=== PATIENT | male | born 1945 | race Caucasian/White ===

== ENCOUNTER → 2019-09-05 09:58 | Outpatient (CLI) | payer MEDICARE ==
[2015-03-13 06:30] VITALS: BMI 28.3
[~2019-09-05 09:58] MED LIST: ARICEPT10 MG PO; CENTRUM COMPLE1 EACH PO; DIOVAN HCT 80-11 TAB PO; MELATONIN 3 MG1 TAB PO; SAW PALMETTO450 MG PO; SLEEP AID25 M1 PO
== END | disposition home or self-care (01) ==
LOC: D.HCCECHO 09:58
PROVIDERS: ATTEND Internal Medicine Cardiovascular Disease
DX: I10 Essential (primary) hypertension (principal)

== ENCOUNTER 2019-09-26 11:09 | Outpatient (CLI) | payer MEDICARE ==
[~2019-09-26] VITALS: Ht 167.6 cm; Wt 80.2 kg
--- NOTE | ~2019-09-26 | HEMODYNAMI ---
PATIENT:LEXI OCONNOR MEDICAL RECORD: [id number] : 49 LOCATION:DSukiCAT ADMISSION DATE: 09/26/19 Generatedon:09/26/201913:57 Patient name: LEXI OCONNOR Patient #: [id number] SSN: [id number] : 1945 Date of study: 09/26/2019 Page: Of Hemodynamic Procedure Report Patient Data Patient Demographics Procedure consent was obtained First Name: LEXI Gender: Male Last Name: ELVIN : 1945 [facility] Initial: E Age: 74 year(s) Patient #: [id number] Race: Unknown SSN: [id number] Additional ID: [id number] Contact details Address: [place] [address] State: [place] City: [place] Zip code: [address] Past Medical History Allergies: No known allergies Admission Admission Data Admission Date: 09/26/2019 Admission Time: 11:09 Arrival Date: 09/26/2019 Arrival Time: 0:00 Admit Source: Other Insurance Payor: Medicare [facility] #: [id number] Height (in.): 26.38 BSA: 0.96 (m2) Height (cm.): 67 BMI: 171.78 (kg/m2) Weight (lbs.): 170 Weight (kg.): 77.11 Lab Results Lab Result Date: 09/26/2019 Lab Result Time: 0:00 Biochemistry Name Units Result Min Max BUN mg/dl 13 --(--*-)-- 7 18 Creatinine mg/dl 1.1 --(--*-)-- 0.6 1.3 eGFR ml/min 70.08954 *-(----)-- 90 120 NONAFRICAN CBC Name Units Result Min Max Hematocrit % 45.5 --(-*--)-- 42 54 Hemoglobin g/dl 15.6 --(--*-)-- 13.5 17.5 Procedure Procedure Types Cath Procedure Diagnostic Procedure PPM/ICD PPM Dual Implant Sedation Charges Moderate Sedation up to 30 minutes Procedure Description Procedure Date Procedure Date: 09/26/2019 Procedure Start Time: 13:26 Procedure End Time: 13:53 Procedure Staff Name Function Arturo Castillo MD Performing Physician Catarino Humphrey MD Assisting physician Vane Renner RT Monitor Maria Teresa Yi RN Nurse Chuyita John RT Scrub Indication Bradycardia Procedure Data Cath Procedure Fluoroscopy Diagnostic fluoroscopy Total fluoroscopy Time: 2.8 time: 2.8 min min Diagnostic fluoroscopy Total fluoroscopy dose: dose: 95.8 mGy 95.8 mGy Estimated blood loss: 10 ml Procedure Complications No complications Procedure Medications Medication Administration Route Dosage 0.9% NaCl I.V. 100 ml/hr Oxygen etCO2 Nasal cannula 2 l/min Lidocaine 1% added to field 20 Ancef (1Gm/50ml NS) I.V.P.B 1 g Ancef Irrigation Topical 1 g (1gm/500ml NS) Versed I.V. 2 mg Fentanyl I.V. 50 mcg Versed I.V. 2 mg Fentanyl I.V. 50 mcg Fentanyl I.V. 50 mcg Hemodynamics Rest BSA: 0.96 (m2) O2 Consumption: Estimated: 104.91 (ml/min) O2 Consumption indexed : Estimated:109.28 (ml/min/m) Heart Rate: 54 (bpm) Snapshots Pre Cath Intra NCS Post Cath Vital Signs Time Heart Resp SPO2 etCO2 NIBP (mmHg) Rhythm Pain Sedation Rate (ipm) (%) (mmHg) Status Level (bpm) 12:53:14 50 13 100 24 127/81(106) SB 0 (11) 10(A) , No pain 12:57:26 56 14 97 0 118/73(91) SB 0 (11) 10(A) , No pain 13:01:35 56 13 100 24 116/69(97) SB 0 (11) 10(A) , No pain 13:05:49 56 16 100 27 114/72(94) SB 0 (11) 10(A) , No pain 13:09:57 54 11 100 30.7 119/71(86) SB 0 (11) 10(A) , No pain 13:14:07 56 11 100 23.2 114/71(86) SB 0 (11) 10(A) , No pain 13:18:05 59 10 99 24 108/72(90) SB 0 (11) 10(A) , No pain 13:22:13 58 13 99 33 116/65(84) SB 0 (11) 10(A) , No pain 13:26:22 58 14 99 40.5 113/67(82) SB 0 (11) 10(A) , No pain 13:30:30 65 14 99 36 119/71(98) NSR 0 (11) 10(A) , No pain 13:34:40 60 13 99 40.5 110/67(88) NSR 0 (11) 10(A) , No pain 13:39:35 55 15 100 31.5 114/65(91) SB 0 (11) 10(A) , No pain 13:43:43 89 14 100 32.2 116/70(107) Paced 0 (11) 10(A) , No pain 13:48:36 60 13 100 31.4 116/70(96) Paced 0 (11) 10(A) , No pain 13:52:42 59 9 100 34.4 119/74(91) Paced 0 (11) 10(A) , No pain Medications Time Medication Route Dose Verified Delivered Reason Notes Effecti veness by by 12:52:25 0.9% NaCl I.V. 100 Arturo Maria Teresa used for ml/hr Anna Kd procedure RN 12:52:31 Oxygen etCO2 2 Arturo Maria Teresa used for Nasal l/min AnnaEliot Yi procedure cannula RN 12:52:47 Lidocaine added 20ml Catarino Toribio for local 1% to vial Mayuri Humphrey MD anesthetic field x 2 12:52:59 Ancef I.V.P.B 1 g Sabianist Maria Teresa used for (1Gm/50ml Mayuri Yi procedure NS) RN 12:53:10 Ancef Topical 1 g Sabianist Sabianist used for Irrigation Mayuri Humphrey MD procedure (1gm/500ml NS) 13:23:15 Fentanyl I.V. 50 Arturo Maria Teresa for mcg St [place] Yi sedation RN 13:23:55 Versed I.V. 2 mg Arturo Maria Teresa for St [place] Yi sedation RN 13:29:21 Versed I.V. 2 mg Arturo Maria Teresa for AnnaElito Yi sedation RN 13:29:24 Fentanyl I.V. 50 Arturo Morel for [facility] [place] Yi sedation RN 13:34:33 Fentanyl I.V. 50 Arturo Morel for [facility] St Eliot Yi sedation sanitary napkin machine tender Log Time Note 12:20:18 Arrival Date: 09/26/2019 12:00:00 AM 12:20:39 Admit Source: Other 12:20:43 Insurance Payor : Medicare 12:20:53 Patient Height : 26.38 inches 12:21:04 Patient Weight : 170 lbs 12:22:23 Diagnostic Cath Status : Elective 12:23:15 Indication : Bradycardia 12:23:29 Procedure Status Elective Heart Cath (OP). 12:23:31 Time tracking: Regular hours (M-F 7:00 - 5:00) 12:23:36 Plan of Care:Hemodynamics will remain stable., Cardiac rhythm will remain stable., Comfort level will be maintained., Respiratory function will remain adequate., Patient/ family verbilizes understanding of procedure., Procedure tolerated without complication., Recovers from procedure without complications.. 12:36:25 Vane GUPTA(R) sent for patient. Start room use. 12:43:08 Patient received from Pre/Post Procedure Room to CCL 3 Alert and oriented. Tansferred to table in Supine position. 12:43:11 Signed procedure consent form obtained from patient. 12:43:11 Warm blankets applied, and abdoul hugger turned on for patient comfort. 12:43:12 Correct patient and procedure confirmed by team. 12:43:31 H&P Date Dictated: 09/12/2019 Within 30 days and on chart., H&P Addendum completed by physician on day of procedure. (MUST COMPLETE FOR ALL OUTPATIENTS). 12:43:40 Patient allergic to No known allergies 12:45:01 Lab Result : BUN 13 mg/dl 12:45:01 Lab Result : Creatinine 1.1 mg/dl 12:45:01 Lab Result : eGFR NONAFRICAN 70.67373 ml/min 12:45:01 Lab Result : Hemoglobin 15.6 g/dl 12:45:01 Lab Result : Hematocrit 45.5 % 12:45:54 Pre-procedure instructions explained to patient. 12:45:54 Pre-op teaching completed and patient verbalized understanding. 12:46:03 Family in patients room. 12:46:05 Patient NPO since Midnight. 12:46:06 Is patient on blood thinner?No 12:46:29 Patient diabetic? No. 12:46:36 Previous problem with sedation/anesthesia? No ? 12:46:37 Snore? Yes 12:46:40 Sleep apnea? Yes 12:46:42 Deviated septum? No 12:46:44 Opens mouth fully? No 12:46:44 Sticks out tongue? Yes 12:47:01 Airway obstruction? No ? 12:47:02 Dentures? No ? 12:47:12 Patient pain scale 0/10 ?. 12:47:22 IV patent on arrival in left hand with 0.9% NaCl at [facility]. 12:47:46 Lab results completed and on chart. 12:47:51 Left chest area was prepped with chlora-prep and draped in sterile fashion 12:47:52 Alarms reviewed by R. N. 12:47:53 Sharps counted by scrub and verified by R.N. 12:52:13 Vital chart was started 12:52:25 0.9% NaCl 100 ml/hr I.V. was administered by Maria Teresa Yi RN; used for procedure; Verbal order read back and verified. 12:52:31 Oxygen 2 l/min etCO2 Nasal cannula was administered by Maria Teresa Yi RN; used for procedure; Verbal order read back and verified. 12:52:47 Lidocaine 1% 20ml vial x 2 added to field was administered by Catarino Humphrey MD; for local anesthetic; Verbal order read back and verified. 12:52:59 Ancef (1Gm/50ml NS) 1 g I.V.P.B was administered by Maria Teresa Yi RN; used for procedure; Verbal order read back and verified. 12:53:10 Ancef Irrigation (1gm/500ml NS) 1 g Topical was administered by Catarino Humphrey MD; used for procedure; Verbal order read back and verified. 12:59:[address] Generator [id number] opened to sterile field. 12:59:48 Medtronic 4074-52 PPM Lead opened to sterile field. 12:59:49 Medtronic 4574-45 PPM Lead opened to sterile field. 13:05:40 Baseline sample Acquired. 13:05:49 Full Disclosure recording started 13:19:41 Use device set MAYURI PPM 13:19:50 2-0 Ticron Multipack ([id number]) opened to sterile field. 13:19:51 3-0 Vicryl Single Pack [id number] opened to sterile field. 13:19:51 5-0 Monocryl PS2 [id number] opened to sterile field. 13:19:55 Cautery Tip Station Repairer opened to sterile field. 13:20:02 Mepilex Dressing ([id number]) opened to sterile field. 13:22:13 Physician arrived 13::14 --------ALL STOP TIME OUT------ 13::15 Final Timeout: patient, procedure, and site verified with staff and physician. All members of the team are in agreement. 13:22:35 Left Arm site verified by team. 13::39 Fire Safety Assessment: A--An alcohol-based skin anteseptic being used preoperatively., C--Open oxygen or nitrous oxide is being used., D--An ESU, laser, or fiber-optic light is being used. 13:22:45 Physical assessment completed. ASA score P 3 - A patient with severe systemic disease as per Arturo Castillo MD. 13:23:07 2) 60-89 Mildly reduced kidney function, and other findings (as for stage 1) point to kidney disease. 13:23:13 Sedation plan: IV Moderate Sedation Medication:Versed, Fentanyl 13:23:15 Fentanyl 50 mcg I.V. was administered by Maria Teresa Yi RN; for sedation; Verbal order read back and verified. 13:23:55 Versed 2 mg I.V. was administered by Maria Teresa Yi RN; for sedation; Verbal order read back and verified. 13:24:04 Procedure started. 13:25:02 [employer] videotape sales representative DAVID Casper present for procedure. 13:25:32 Pre sharps counted by scrub and verified by RN: Sutures: 6; Sponges: 5; Stick needles: 2; Skin needles: 1; Blade: 1; Cautery: 1 13:25:53 Grounding pad site Left thigh. 13:25:55 Grounding pad site free from injury. 13:26:03 Lidocaine 1% w/epi was administered to left subclavicular area by Catarino Humphrey MD . 13:29:21 Versed 2 mg I.V. was administered by Maria Teresa Kd RN; for sedation; Verbal order read back and verified. 13:29:24 Fentanyl 50 mcg I.V. was administered by Maria Teresa Yi RN; for sedation; Verbal order read back and verified. 13:30:17 Incision made to left subclavicular area. 13:31:32 Generator pocket made/opened. 13:31:42 Left subclavian vein accessed with 7Fr Peel Away Sheath. 13:32:24 Ventricular lead inserted and advanced. 13:32:35 Atrial lead inserted and advanced. 13:32:58 Peel-a-way sheath was split and removed. 13:34:27 Immobilizer Large opened to sterile field. 13:34:33 Fentanyl 50 mcg I.V. was administered by Maria Teresa Yi RN; for sedation; Verbal order read back and verified. 13:34:47 Ventricular lead tested. 13:34:50 Atrial lead tested. 13:35:04 PPM Dual was inserted subcutaneously to left chest. 13:35:07 Device pocket was irrigated with Ancef. 13:35:14 Ventricular lead attachment was completed with 2-0 silk. 13:35:18 Atrial lead attachment was completed with 2-0 silk. 13:35:21 Generator was sutured in place with 2-0 silk. 13:39:41 Subcutaneous closure was completed with 3-0 vicryl. 13:43:28 Skin closure was completed with 5-0 monocryl. 13:45:23 Parameters-- Generator: Mode: 60. Lower Rate: AAIR=DDDRbpm. Upper Rate: 120bpm. 13:46:21 Parameters--Ventricular P/R Wave: 11.3mV. Current: .1mA; Threshold: .2V; Impedence: 1096OHMS. 13:46:56 Parameters--Atrial P/R Wave: 4.1mV. Current: .4mA; Threshold: .3V; Impedence: 566OHMS. 13:47:04 Lt Chest incision was dressed with Mepilex dressing. 13:50:10 Procedure ended.(Physican Out) 13:50:35 Fluoroscopy time 02.80 minutes. 13:51:20 Flurop Dose total: 95.8 13:51:20 Fluoroscopy dose: 95.8 mGy 13:51:29 Dose Area Product 1389 mGy/cm. 13:51:43 Sharps counted by scrub and verified by R.N. 13:52:00 Post left subclavian vein:stable 13:52:02 Post Procedure Pulses reassessed and unchanged 13:52:07 Post-procedure physical assessment completed. ASA score P 2 - A patient with mild systemic disease as per Arturo Castillo MD. 13:52:10 Post procedure rhythm: paced 13:52:14 Estimated blood loss: 10 ml 13:52:16 Post procedure instruction explained to patient.Patient verbalizes understanding. 13:52:44 Procedure type changed to Cath procedure, Diagnostic procedure, PPM/ICD, PPM Dual Implant, Sedation Charges, Moderate Sedation up to 30 minutes 13:52:46 Procedure and supply charges have been captured, reviewed, submitted and are correct. 13:53:08 Procedure Complication : No complications 13:53:11 Vital chart was stopped 13:53:23 Operative report dictated upon procedure completion. 13:53:24 See physician's report for complete and final results. 13:53:27 Report given to Pre/Post Procedure Room. 13:53:30 Patient transfered to Pre/Post Procedure Room with Stretcher. 13:53:32 Procedure ended. 13:53:32 Full Disclosure recording stopped 13:53:35 End room use (Document Last) Device Usage Item Name Manufacture Quantity Catalog Hospital Part Current Minima l Lot# / Number Charge Number Stock Stock Serial# Code Medtronic Medtronic 1 [id number] 5 PEDRO XT [id number] Generator EXP. W1DR01 01/02/2021 Medtronic Medtronic 1 4074-52 952910 384410 611647 5 4074-52 PPM [id number] Lead EXP .12/01/2017 Medtronic Medtronic 1 4574-45 [id number] 324902 473155 5 4574-45 PPM [id number] Lead EX P.05-03-2019 2-0 Ticron Ethicon 3 [id number] 58179 528454 5 Multipack ([id number]) 3-0 Vicryl Ethicon 1 [id number] 937282 507165 570691 5 Single Pack [id number] 5-0 Monocryl Ethicon 1 [id number] 743969 823154 323955 5 PS2 Y495G Cautery Tip Microtek 1 [id number] [id number] 862497 448697 5 Station [employer] Mepilex Cardinal 1 [id number] 139483 114583 776804 5 Dressing Health (572123) Immobilizer Cardinal 1 [id number] 573122 581592 957529 5 Large Health Signature Audit Oklee Stage Time Signature Unsigned Intra-Procedure 09/26/2019 Vane Renner 1:55:16 PM RT(R) Intra-Procedure 09/26/2019 Maria Teresa Yi 1:56:50 PM RN Intra-Procedure 09/26/2019 Arturo Little 1:57:49 PM [place] [address] [id number] [place] [address]
[2019-09-26] MEDS ORDERED: COZAAR25 MG PO (11:55)
[2019-09-26] MEDS ORDERED: HYDROCHLOROTH12.5 M1 PO (11:55)
[2019-09-26] MEDS ORDERED: MULTI-DAY VITAM1 TAB PO (11:55)
[2019-09-26] MEDS ORDERED: CRESTOR10 MG PO (11:56)
[2019-09-26] MEDS ORDERED: SILODOSIN 4 MG PO (11:57)
[2019-09-26] MEDS ORDERED: VIAGRA100 MG PO (11:58)
[2019-09-26] MEDS ORDERED: MOBIC7.5 MG PO (11:58)
[2019-09-26 12:15] VITALS: BP 133/75; Ht 167.6 cm; Wt 80.2 kg
[2019-09-26 12:28] LABS: CALCIUM 9.3 mg/dL (8.5-10.1); CARBON DIOXIDE 25.7 mmol/L (21.0-32.0); CREATININE - SERUM 1.1 mg/dL (0.6-1.3); POTASSIUM - SERUM 3.7 mmol/L (3.5-5.1)
[2019-09-26 12:32] LABS: HEMATOCRIT 45.5 % (42.0-54.0); HEMOGLOBIN 15.6 g/dL (13.5-17.5); MCH 32.4 pg (26.0-34.0); MCHC 34.3 g/dL (31.0-37.0); MCV 94.6 fL (80.0-100.0); MEAN PLATELET VOLUME 10.3 fL (7.4-10.4); RBC 4.81 10x6/uL (4.20-6.10); RDW 13.1 % (11.5-14.5); WBC 6.6 10x3/uL (4.8-10.8)
[2019-09-26 12:55] LABS: APTT 29.5 SECONDS (22.8-39.4); INR 1.03 (0.85-1.17); PROTIME 13.4 SECONDS (11.6-15.0)
--- NOTE | 2019-09-26 14:15 | NUR ---
PT REC'D TO ROOM 3 VIA STRETCHER FROM GROUT WORKER. MONITORS ESTAB. AT BS. SEE SENIOR ARCHITECT/DESIGN MANAGER. ALARMS ON AND C/L IN REACH.
--- NOTE | 2019-09-26 14:30 | NUR ---
CM - PACED, B/P 128/76. PT RESTING QUIETLY, DENIES NEEDS. C/L IN REACH.
--- NOTE | 2019-09-26 15:00 | NUR ---
PCXR DONE. L CHEST PPM SITE C/D/I, NO S/S DRAINAGE OR SWELLING.
--- NOTE | 2019-09-26 15:15 | NUR ---
PT SITTING UP IN BED, L CHEST PPM DSG C/D/I. SANDWICH TRAY PROVIDED AND COLA. AT BS HELPING. VSS. C/L IN REACH.
--- NOTE | 2019-09-26 15:30 | NUR ---
VSS. PT ATE ALL OF SANDWICH. L CHEST SITE C/D/I. POST OP TEACHING WITH PT AND DONE.
--- NOTE | 2019-09-26 15:45 | NUR ---
VSS. PIV D/C'D INTACT, DSG APPLIED. PT UP TO GET DRESSED AND GO TO BR WITH ASSISTING.
--- NOTE | 2019-09-26 15:57 | NUR ---
ALL DISCHARGE INSTRUCTIONS REVIEWED WITH PT AND HIS , INCLUDING RESTRICTIONS, SLING USE, AND F/U APPT.
--- NOTE | 2019-09-26 16:00 | NUR ---
PT D/C'D VIA W/C TO PRIVATE VEHICLE WITH ALL PAPERWORK AND BELONGINGS. L ARM IN SLING, PT AND VERBALIZE UNDERSTANDING OF D/C INSTRUCTIONS.
--- NOTE | 2019-09-28 13:27 | OP ---
PATIENT NAME: LEXI OCONNOR MEDICAL RECORD: [id number] :49 LOCATION:D.CAT ADMISSION DATE: SURGEON: FLOR MESSINA MD DATE OF OPERATION: 09/26/2019 PREOPERATIVE DIAGNOSES: 1. Sick sinus syndrome with pauses. 2. Hypertension. 3. Hypercholesterolemia. POSTOPERATIVE DIAGNOSES: 1. Sick sinus syndrome with pauses. 2. Hypertension. 3. Hypercholesterolemia. PROCEDURE: Left subclavian vein dual lead pacemaker placement. SURGEON: Flor Messina MD CO-SURGEON: Arturo Rangel MD REPORT OF PROCEDURE: The patient's left chest was prepped and draped in sterile fashion. A 10 mL of 1% lidocaine with epinephrine was infused into the surrounding tissues. A skin incision was made on the left superolateral chest and a subcutaneous pouch was made over the pectoral fascia. Needle was used to cannulate the left subclavian vein and guidewires were advanced with ease. Fluoro was used to note that the wires were in good position in the venous system. Dilator trocar devices were placed over the wires and the wires and dilators were removed. The leads were advanced through the trocars until they rested in the superior vena cava. At this point, Dr. Rangel positioned the leads appropriately in the atrium and ventricle. Once the leads were noted to be functioning appropriately, then they were sutured into place with 2-0 Ti-Cron. The leads were affixed to the pacemaker which was placed into the subcutaneous pouch and sutured to the pectoral fascia with a single interrupted 2-0 Ti-Cron. We irrigated out the wound with antibiotic solution. The subcutaneous tissues were reapproximated with interrupted 3-0 Vicryl and the skin was closed with running subcutaneous 5-0 Monocryl. COMPLICATIONS: None. CONDITION: Stable. ANESTHESIA: Local/MAC. BLOOD LOSS: Minimal. NTS:[id number] Voice Confirmation ID: [id number] DOCUMENT ID: [id number] OPERATIVE REPORT [id number] LEXI OCONNOR FLOR MESSINA MD at 1327 CC: [id number] DICTATION DATE: 09/26/19 1358 CHARCOAL KILN BURNER: 09/26/19 1753 DEP CLI 09/26/19 [id number] [place] [address]
--- NOTE | 2019-09-28 14:52 | OP ---
PATIENT NAME: STEVE TERAN MEDICAL RECORD: [id number] :49 LOCATION:D.CAT ADMISSION DATE: SURGEON: PHANI CHAPA MD DATE OF OPERATION: 09/26/2019 PROCEDURE: Lead portion of permanent pacemaker placement. INDICATION: Sick sinus syndrome with pauses. SURGEON: Catarino Humphrey MD DESCRIPTION OF PROCEDURE: After left subclavian was cannulated via modified Seldinger technique via Dr. Humphrey, first, under fluoroscopic guidance, I placed RV lead in the RV apex without difficulty. After adequate R waves and thresholds were obtained, again under fluoroscopic guidance, I placed the right atrial lead in right atrial appendage without difficulty. After adequate P waves and thresholds were obtained, the leads were then attached to appropriate poles of the generator and the pocket was closed via Dr. Humphrey. IMPRESSION: Successful lead portion of permanent pacemaker placement on Steve Teran. ESTIMATED BLOOD LOSS: Minimal. COMPLICATIONS: None. DISPOSITION: To the floor, stable. TRANSINT:[id number] Voice Confirmation ID: [id number] DOCUMENT ID: [id number] PHANI CHAPA MD at 1452 CC: [id number] DICTATION DATE: 09/26/19 1347 SANITATION ASSOCIATE: 09/26/19 1629 DEP CLI 09/26/[id number] [facility] [address]
== END 2019-09-26 16:00 | disposition home or self-care (01) ==
LOC: D.CATH 11:09
PROVIDERS: ATTEND Internal Medicine Interventional Cardiology
DX: I49.5 Sick sinus syndrome (principal); I10 Essential (primary) hypertension; E78.00 Pure hypercholesterolemia, unspecified; E78.5 Hyperlipidemia, unspecified

== ENCOUNTER → 2019-10-16 14:14 | Outpatient (CLI) | payer MEDICARE ==
[2019-09-26 12:15] VITALS: BMI 28.5
[~2019-10-16 14:14] MED LIST changes: +COZAAR25 MG PO; +CRESTOR10 MG PO; +HYDROCHLOROTH12.5 M1 PO; +MOBIC7.5 MG PO; +MULTI-DAY VITAM1 TAB PO; +SILODOSIN 4 MG PO; +VIAGRA100 MG PO
== END | disposition home or self-care (01) ==
LOC: D.CT 14:00
PROVIDERS: ATTEND Psychiatry & Neurology Neurology
DX: F03.90 Unspecified dementia, unspecified severity, without behavioral disturbance, psychotic disturbance, mood disturbance, and anxiety (principal)